=== PATIENT | male | born 1940 | race Caucasian/White ===

== ENCOUNTER → 2024-12-15 10:16 | Outpatient (REF) | payer MEDICARE, OTHER, SELFPAY | LOC: HWRCS 10:16 | PROVIDERS: ATTENDING PHYSICIAN Internal Medicine Cardiovascular Disease; FAMILY PHYSICIAN Internal Medicine Geriatric Medicine | DX: I95.1 Orthostatic hypotension (principal); R42 Dizziness and giddiness; R01.1 Cardiac murmur, unspecified | CPT/HCPCS: 93306 ==

== ENCOUNTER 2025-07-09 11:53 | Day surgery (SDC) | payer MEDICARE, OTHER, SELFPAY ==
--- NOTE | 2025-07-09 13:05 | ITS.CL.IMPLP ---
[employer] Consultant - Implant Loop
Implant Loop
Procedure Report:
Primary Physician: Dr Miguel Edwards
Procedure Date: 07/09/2025
Procedure: Placement of a loop recorder.
History/Indication:
1. See office H&P for complete history.
2. Patient is a pleasant 85-year-old male with a past medical history significant for mild aortic stenosis, orthostatic hypotension, hypertension, mixed hyperlipidemia, history of CVA, sleep apnea, diabetes mellitus type 2, and atrial fibrillation
status post ablation 2005. Patient presenting for elective ILR implant for longitudinal surveillance of atrial arrhythmias.
Method:
After informed consent was obtained, the patient was brought to the EP laboratory holding area in a fasting, non-sedated state. Peripheral access was established. The left chest was prepared and draped in a sterile fashion. A 'time out' was
called. Local anesthesia was injected in the subcutaneous tissue. The ILR was injected under the skin. Topical skin adhesive was applied. Following the procedure, the patient was taken to the recovery area in stable condition. No complications
were noted.
Device Data:
[employer]onic; Model# [id number]; Serial# [id number]
Conclusion:
Successful placement of a loop recorder.
Recommendations:
1. Follow-up will be arranged in the [facility] in 7-10 days for wound check.
2. Routine ILR care.
Demetrio Parra DO, [facility], [facility]
Clinical Cardiac Metal Flooring Installer
cc: Dr Miguel Edwards
== END 2025-07-09 13:55 | disposition home or self-care (01) ==
LOC: CATH 11:53
PROVIDERS: ATTENDING PHYSICIAN Internal Medicine Cardiovascular Disease; FAMILY PHYSICIAN Student in an Organized Health Care Education/Training Program
DX: Z09 Encounter for follow-up examination after completed treatment for conditions other than malignant neoplasm (principal); Z86.73 Personal history of transient ischemic attack (TIA), and cerebral infarction without residual deficits; E11.9 Type 2 diabetes mellitus without complications; E78.2 Mixed hyperlipidemia; I10 Essential (primary) hypertension; I35.0 Nonrheumatic aortic (valve) stenosis; I48.91 Unspecified atrial fibrillation; G47.30 Sleep apnea, unspecified; Z98.890 Other specified postprocedural states
CPT/HCPCS: 33285; C1764

== ENCOUNTER 2025-07-12 03:44 | Inpatient (IN) | payer MEDICARE, OTHER, SELFPAY ==
[2025-07-12] VITALS (35 sets, daily range): BP systolic 80–169; BP diastolic 53–99; PULSE 72–114; O2SAT 96; BMI 26.4; BMI 27.0
[2025-07-12 01:15] LABS: Glucose - Point of Care 129 mg/dl (70-99)
[2025-07-12 01:26] LABS: Hematocrit 41.3 % (39.0-52.0); Hemoglobin 14.0 g/dL (13.0-18.0); Mean Corp Hgb Conc. 33.9 g/dL (33.0-37.0); Mean Corpuscular Volume 90.6 fL (80.0-94.0); Nucleated Red Blood Cells % 0 % (-); Platelet Count 215 10^3/uL (130-400); Red Cell Dist. Width 13.0 % (11.5-14.5)
[2025-07-12 01:45] LABS: INR 0.96; PT 13.0 Sec (11.4-14.6)
[2025-07-12 01:46] LABS: APTT 30.6 Sec (23.4-35.0)
[2025-07-12 01:51] LABS: Troponin I < 0.012 ng/ml
[2025-07-12 01:58] LABS: ALT (SGPT) 37 U/L (0-50); AST (SGOT) 36 U/L (17-59); Albumin 4.6 g/dl (3.5-5.0); Alkaline Phosphatase 80 U/L (38-126); Blood Urea Nitrogen 28 mg/dl (9-20); Calcium 9.4 mg/dl (8.4-10.2); Carbon Dioxide 22 mmol/L (22-30); Chloride 106 mmol/L (98-107); Estimated Creatinine Clearance 50 ml/min; Glucose 143 mg/dl (70-99); Potassium 4.5 mmol/L (3.5-5.1); Sodium 140 mmol/L (135-145); Total Protein 7.9 g/dl (6.3-8.2); eGFR > 60.00
[2025-07-12 02:05] LABS: Urine Character Clear (Clear)
--- NOTE | 2025-07-12 02:18 | ED.CVA ---
History of Present Illness
General
Chief Complaint: CVA/TIA Symptoms
Source: patient, family and ambulance crew
Exam Limitations: altered mental status
Time Seen by Provider: 07/12/25 01:17
Nursing documentation reviewed up to this point in time: agreed with
Onset of Stroke Symptoms
Onset of symptoms known: No
Date of onset of symptoms: 07/11/25
Time of onset of symptoms: 17:00
Time pt last seen normal is known: No
History of Present Illness
History of Present Illness:
Note:
CHIEF COMPLAINT(S)
Chills and confusion.
HISTORY OF PRESENT ILLNESS
The patient is an 85-year-old male who reported experiencing chills on Saturday morning and spent the entire day in bed. The patient described feeling 'low the whole time.' Around midnight, the patient communicated that he was shaking in bed and felt
very unwell, saying, 'I feel real bad right now.' Upon arrival, it was observed that the patient appeared pale and confused, repeating questions and exhibiting visible shivering. The patients blood pressure was recorded at fluctuating high values,
reportedly anywhere from 160/85 to roughly 100/like pounds (clarification needed). The patient acknowledged being on blood pressure medication, specifically metoprolol.
PHYSICAL EXAM
General: Alert, no acute distress.
Skin: Warm, dry.
Head: Normocephalic, atraumatic.
Neck: Supple, trachea midline.
Eye, Ears, Nose, Mouth and Throat: Oral mucosa moist.
Cardiovascular: Normal peripheral perfusion, No edema.
Respiratory: Respirations are non-labored.
Gastrointestinal: Abdomen nondistended.
Back: Normal range of motion, Normal alignment.
Musculoskeletal: Normal ROM, normal strength.
Neurological: Alert and oriented to person, place, time, and situation, No focal neurological deficit observed.
Psychiatric: Cooperative, appropriate mood & affect.
PROBLEM LIST
Acute Problems:
- Chills
- Confusion
- Shivering
Chronic Problems:
- Hypertension
PLAN
1. Monitor vital signs closely with particular attention to blood pressure fluctuations.
2. Evaluate the need for modification or continuation of metoprolol therapy based on current blood pressure readings and overall condition.
3. Further diagnostic workup to assess the cause of chills and confusion.
DIFFERENTIAL DIAGNOSIS
The Differential Diagnosis includes, in no particular order and is not limited to:
- Urinary Tract Infection
- Pneumonia
- Sepsis
- Medication side effects
- Electrolyte imbalance
- Stroke
- Hypothyroidism
- Heart failure
- Dehydration
- Hyperthermia
CARE-UPDATE
07/12/25 - 02:32
The patient, an 85-year-old male, was previously noted to have confusion and expressive aphasia. His last confirmed normal cognitive state was around 5 PM on Saturday. He became notably confused around 1 AM when he could not provide basic information
regarding his identity or current events. Upon reassessment now, he demonstrates some improvement yet still presents with expressive aphasia, unable to accurately describe certain objects like a ladder, referring to it as a 'slope.' While he can
repeat specific phrases when asked, he also perseverates and repeats previously given answers inaccurately. Sensation is generally okay but has a noted discrepancy when tapped on the legs, as he only indicates feeling one leg at a time. His blood
pressure, initially elevated, now reads at 153/69. Recent imaging, including a CT and CTA of the head with perfusion, showed severe artery narrowing, though it appears to be chronic. An implanted AFib-loop recorder was noted. Neurology consultation
confirmed current management and will not require immediate alteration.
CARE-UPDATE
07/12/25 - 02:[address] Mayberry from [facility]; patient likely experiencing transient global amnesia. Initiate aspirin 325 mg. Maintain permissive hypertension. Plan to admit for observation and obtain a brain MRI in the morning.
NIHSS:
Result Summary
2 points undefined
Inputs:
1A: Level of consciousness -> 0 = Alert; keenly responsive
1B: Ask month and age -> 1 = 1 question right
'Blink eyes' & 'squeeze hands' -> 0 = Performs both tasks
2: Horizontal extraocular movements -> 0 = Normal
3: Visual carrasquillo -> 0 = No visual loss
4: Facial palsy -> 0 = Normal symmetry
5A: Left arm motor drift -> 0 = No drift for 10 seconds
5B: Right arm motor drift -> 0 = No drift for 10 seconds
6A: Left leg motor drift -> 0 = No drift for 5 seconds
6B: Right leg motor drift -> 0 = No drift for 5 seconds
7: Limb ataxia -> 0 = No ataxia
8: Sensation -> 0 = Normal; no sensory loss
9: Language/aphasia -> 1 = Mild-moderate aphasia
10: Dysarthria -> 0 = Normal
11: Extinction/inattention -> 0 = Normal
Disposition:
SUMMARY OF ENCOUNTER
The patient, an 85-year-old male, presented with chills and confusion as primary complaints. Upon examination, he was observed to be pale, shivering, and exhibiting expressive aphasia. With fluctuating high blood pressure, he was at risk of
hypertension complications but was being managed on metoprolol. Following consultation with neurology specialists, a presumptive diagnosis of transient global amnesia was made. Given his condition, he was recommended for admission to hospital
service for further observation and assessment.
DISPOSITION
Admit
ASSESSMENT
The patient is likely experiencing transient global amnesia, as per the neurology consultation.
MANAGEMENT OF THE PATIENTS CARE WAS DISCUSSED WITH
Discussion with Dr. Mayberry from [facility] confirmed the management plan of permissive hypertension and initiation of aspirin therapy, along with admission for further observation and a scheduled brain MRI.
PLAN
The immediate plan includes admission for observation, initiation of aspirin 325 mg, maintenance of permissive hypertension, and scheduling a brain MRI for further evaluation of his neurological status.
MEDICATION RECONCILIATION
- Initiated aspirin 325 mg.
MEDICAL DECISION MAKING
- Chronic conditions affecting care include hypertension.
-Data:
Category 1: Consultation with Dr. Mayberry from [facility] resulting in altered management plan and confirmation of transient global amnesia diagnosis.
-Risk: Admission for observation and evaluation with brain MRI underscores increased risk due to potential complications from hypertension and altered mental status.
DIAGNOSIS
- Transient Global Amnesia (ICD-10 G45.4)
- Hypertension (ICD-10 I10)
Phy Exam
Physical Exam
Physical Exam:
.
Scores
Thrombolytic Contraindication
Reasons for NON-Tx with Thrombolytics ABSOLUTE Exclusions: Greater than 4.5 hrs from onset of sxs
Course
Orders/Labs/Results
Orders:
Orders
07/12/25 01:13
Electrocardiogram (*1) Urgent
Reason for Study: Other
Other Reason for Exam: Possible Stroke
Bedside Glucose- Treatment ONCE
Cardiac Monitoring- Treatment ONCE
EKG- Treatment ONCE
IV Insert/Care/Rem.- Treatment PRN
Vital Signs As Directed
Frequency: Other
Weight As Directed
Frequency: Once
Comment: ZERO STRETCHER SCALE FOR ACCURATE WEIGHT
O2 Therapy [RESP] Urgent
Titrate/Wean O2 to maintain O2 sat greater than (%): 93
Special Instructions: MAINTAIN CONTINUOUS O2 SATS > OR = 93%
07/12/25 01:16
Complete Blood Count/With Diff Urgent
Comprehensive Metabolic Panel Urgent
PTT Urgent
Prothrombin Time Urgent
Troponin I Urgent
Urinalysis Reflex To Culture Urgent
Date Specimen was Collected: 07/12/25
Time Specimen was Collected: 01:13
07/12/25 01:[address] BRAIN PERF STROKE ALERT Urgent
Comment:
Reason For Exam: confusion, aphasia
CT HEAD STROKE ALERT W/o Cont Urgent
Comment:
Reason For Exam: confusion, aphasia
CT HEAD/NECK ANG STROKE ALERT Urgent
Comment:
Reason For Exam: confusion, aphasia
07/12/25 02:48
Aspirin 325 mg PO NOW STA
07/12/25 02:55
Aspirin 325 mg PO NOW STA
07/12/25 03:24
Admit/Transfer Patient As Directed
Co-Sign Provider:
Level of Care: Inpatient admission
Assign to:: Telemetry
Physician / Group: Garrick
Diagnosis: TGA / CVA
Reason for Telemetry: CVA/TIA
Date to Stop Telemetry: 07/15/25
Time to Stop Telemetry: 11:00
Reason for Hospitalization: TGA / CVA
Expected length of stay greater than two midnights?: Yes
ELOS- Estimated Length of Stay in days: 2
I certify the patient meets the requirements for IP care: Yes
PRN Pain Medication Management As Directed
May give lesser potent ordered pain med per pt: Yes
preference::
Protocol:: Medication orders for pain may be administered in a
manner that supports deferring to patient preference
when the pt is:
- Requesting an ordered lesser potent pain medication.
Least to most potent pain medications are defined
as: acetaminophen < NSAID < tramadol < opioids
(morphine, oxycodone, hydromorphone).
- Requesting a lesser dose of the same medication IF
ORDERED.
- Requesting a less intrusive route of administration
if both routes are prescribed by the provider (PO <
IV).
07/12/25 03:25
Code Status As Directed
Resuscitation Status: Full Code
07/12/25 05:34
Acetaminophen [Tylenol] 650 mg PO Q4HPRN PRN
07/12/25 05:34
Consult Notification Routine
Specialty to Notify: Neurology
Date consulting provider notified: 07/12/25
Time consulting provider notified: 07:15
Notified:: Provider
Comment: Dr. Torres notified via tiger text
NEUROLOGY CONSULT Routine
Consulting Provider: Alan Kern
Was physician already notified: No
Reason for consult: TGA / CVA
Activity As Directed
Activity Level: Ambulate
With Assistance
EKG with chest pain [ECG as needed] As Directed
ECG as needed for:: Chest Pain
I/O [Intake/ Output] As Directed
Frequency: Per unit guidelines
Neurological Checks As Directed
Frequency: q4h
Orthostatic Vital Signs As Directed
Orthostatic VS Frequency: BID
Pneumatic Compression Sleeves As Directed
Type: Knee high
Vital Signs As Directed
Frequency: Per unit guidelines
Weight As Directed
Frequency: Daily
Oxygen Therapy [O2 Therapy] [RESP] Routine
Titrate/Wean O2 to maintain O2 sat greater than (%): 94
Ot Eval And Treat Routine
PT Consult [Pt Eval And Treat] Routine
Activity Level: Ambulate
With Assistance
Speech Therapy Eval & Treat Routine
DX Deep Vein Thrombosis Video Routine
07/12/25 05:49
Basic Metabolic Panel IN AM
Cardiovascular Evaluation IN AM
Complete Blood Count/No Diff IN AM
Glycohemoglobin (HgbA1c) Routine
TSH Reflex To Free T4 Routine
07/12/25 06:00
EKG [Electrocardiogram (*1)] IN AM
Reason for Study: Chest Pain
Regular
At Your Request: Non-Participating
MR Brain Without Contrast IN AM
Comment:
Reason For Exam: CVA / TIA
Recent pill cam endoscopy?: No
07/12/25 08:00
Aspirin Low Dose EC [Aspir Low (Enteric Coated)] 81 mg PO DAILY
Midodrine [ProAmatine] 2.5 mg PO TID
07/15/25 11:00
DC Protocol for Telemetry ONCE
Abnormal Lab Results
07/12/25 07/12/25
01:14 01:16
RBC 4.56 L 10^6/uL
(4.70-6.10)
Absolute Monos (auto) 0.7 H 10^3/uL
(0.1-0.6)
BUN 28 H mg/dl
(9-20)
Glucose 143 H mg/dl
(70-99)
POC Glucose 129 H mg/dl
(70-99)
07/12/25 01:16
07/12/25 01:16
Vital Signs
Initial and Last Documented VS:
Initial Vital Signs
Temp Pulse Resp BP Pulse Ox
98.3 F 88 24 151/87 99
07/12/25 01:13 07/12/25 01:13 07/12/25 01:13 07/12/25 01:13 07/12/25 01:13
Last Documented Vital Signs
Temp Pulse Resp BP Pulse Ox
97.7 F 83 18 154/83 97
07/13/25 11:00 07/13/25 11:00 07/13/25 11:00 07/13/25 11:00 07/13/25 11:00
*Radiology
Radiology exam reviewed: radiology read reviewed
*Pulse Oximetry
SaO2: 100
Oxygen Mode of Delivery: Room air
Patient hypoxic: no
*Critical Care Note
Total Time (30-74mins, 75-104mins- exclusive of procedures): 50. (Critical care statement: A total of 50 minutes of critical care time was provided for this patient. This time is separate from time utilized to perform the aforementioned documented
procedures. Aggregate critical care time includes only time during which I was engaged in work directl)
ED Attending Note
-
Portions of this chart may have been created with voice recognition software.� Occasional wrong word or��sound alike� substitutions may have occurred due to the inherent limitations of voice recognition software.
Discharge Plan
Departure
Patient Disposition: Admit
Date of Disposition: 07/12/25
Time of Disposition: 02:51
Presentation/result/management discussed w/ accepting MD/DO: Hospitalist
Condition: Serious
Discharge Problem:
TGA (transient global amnesia), Expressive aphasia
Interventions
Interventions:
*Risk Screen - Suicide Last Done: 07/12/25 02:10
*General Assessment Last Done: 07/12/25 02:10
*Neglect/Abuse Screening Last Done: 07/12/25 02:10
*ED- Fall Risk Assessment Last Done: 07/12/25 02:10
*ED COVID-19 Vaccine History Last Done: 07/12/25 02:10
*ED Influenza Vaccine History Last Done: 07/12/25 02:10
*Nursing Disposition Last Done: 07/12/25 16:30
ED- Pulmonary Assessment Last Done: 07/12/25 02:14
ED- Neurological Assessment Last Done: 07/12/25 01:51
ED- Cardiac Assessment Last Done: 07/12/25 02:14
ED Swallowing Screen Last Done: 07/12/25 03:04
--- NOTE | 2025-07-12 02:20 | EDRN ---
Pt arrived to ED with stroke symptoms, Dr. Koo at bedside upon arrival to assess pt. Stroke alert called at 0120, pt brought CT scan immediately. Upon pt returning to room, Dr. Koo at bedside to complete NIH stroke scale, agreed at a 2
as pt could not state correct age or month. No unilateral weakness noted. Labs and urine sent, at bedside to further explain symptoms and new mentation.
[2025-07-12] MEDS: ASPIRIN 325 MG PO (02:54)
--- NOTE | 2025-07-12 03:27 | HPS.HSE ---
Family Physician
-
Family Physician: Miguel Edwards, DO
Chief Complaint
-
Confusion
History of Present Illness
Patient is an 85y M with PMH significant for orthostatic hypotension / PPPD, paroxysmal A-Fib and DM-II who presents to ED for evaluation of altered mental status / confusion. History obtained from patient - but to greater extent from at
the bedside. Patient has h/o paroxysmal A-Fib and was recently evaluated by Cardiology here at (Dr. Parra). He was reluctant to agree to OAC and so a LINQ was placed on 07/09 to evaluate for A-Fib burden. Patient tolerated that procedure
well. states that he woke Saturday AM and felt more lightheaded / dizzy than usual. His symptoms passed however and he was able to attend a family function / lunch without issues.
They returned home and patient spent the afternoon / evening watching football. They took a break from football to watch 60 Minutes together - during which patient was reportedly fairly aggravated / upset with the program.
Patient went to bed around 9:30 - 10PM. He then woke his around midnight and asked her to call for help. He was confused and disoriented at that time according to his .
Patient states that he was 'worried I would go into A-Fib' - but otherwise he cannot describe why he felt he needed assistance.
There was reportedly not noted focal weakness, numbness, fall, syncope, etc,. No chest pain or dyspnea.
In the ED, patient is emotionally labile / tearful at times. He is disoriented and is perseverating the same phrases / statements.
Patient was evaluated by [facility] Telestroke and recommendation is for daily ASA and MRI in AM.
Medical History
Past Medical History
Past Medical History: Reports Other
Additional Past Medical History:
Paroxysmal Atrial Fibrillation / Flutter
Aortic Stenosis
Hypertension
DM-II
PPPD / Orthostatic Hypotension
EMILY
Past Surgical History: Reports Other
Additional Past Surgical History:
PVI Ablation
Bilateral TKA
LINQ Placement
Social History
Tobacco: Non-smoker
Alcohol: Occasional
Drug: None
Personal:
Living: With Family
Family History
Family History: Not pertinent
Allergies / Home Medications
Allergies reflects when Allergies were last updated in [facility].
Home Medications with original date entered in [facility]
Allergy/Medication List:
Allergies
Allergy/AdvReac Type Severity Reaction Status Date / Time
[id number] Reductase Allergy Unknown Unknown Verified 07/12/25 02:28
Inhibitor
Home Medications
B-complex with vitamin C 1 cap PO DAILY 07/09/25
aspirin 81 mg tablet 81 mg PO DAILY 07/09/25
cholecalciferol (vitamin D3) 25 mcg (1,000 unit) capsule (Vitamin D3) 25 mcg PO DAILY 07/09/25
cyanocobalamin (vitamin B-12) 1,000 mcg tablet (Vitamin B-12) 1,000 mcg PO DAILY 07/09/25
metformin 500 mg tablet,extended release 24 hr 500 mg PO QPM 07/09/25
midodrine 2.5 mg tablet 2.5 mg PO TID 07/09/25
multivitamin 1 tab PO DAILY 07/09/25
docusate sodium 100 mg capsule (Colace) 100 mg PO DAILY 07/12/25
ezetimibe 10 mg tablet 10 mg PO DAILY 07/12/25
omeprazole 10 mg capsule,delayed release 10 mg PO DAILY 07/12/25
Review of Systems
-
History Source: Patient and Family
A 12 point ROS was completed and negative except as noted: Yes
Constitutional: Denies Fever or Chills
Respiratory: Denies Cough or Trouble Breathing
Cardiac: Denies Chest Pain
Abdomen/GI: Denies Abdominal Pain, Nausea or Vomiting
: Denies Incontinence
Musculoskeletal: Denies Edema
Neurological: Denies Dizzy or Headache
Physical Exam
Vital Signs
Vital Signs
Temp Pulse Resp BP Pulse Ox
98.3 F 79 16 118/96 100
07/12/25 01:13 07/12/25 03:00 07/12/25 03:00 07/12/25 03:00 07/12/25 03:00
Physical Exam
General: Other (85y M is tearful / emotionally labile in the ED.)
HEENT: Moist mucous membranes and PERRLA
Respiratory: Clear; No Wheezes, Rales or Rhonchi
Cardiac: S1/S2, Regular Rhythm and Murmur (II/ BECKY)
GI: Soft, Non Tender, Non Distended and Normal Bowel Sounds
Musculoskeletal: No Clubbing, No Cyanosis, No Edema and Other (Mild - moderate varicose veins.)
Neuro: Awake, Alert and Other (No focal weakness, sensory deficits or ataxia. Oriented only to person (self / ). Place [facility]. Year .); No Oriented
Laboratory Results
-
07/12/25 01:16
07/12/25 01:16
Laboratory Results
PT 13.0 Sec (11.4-14.6) 07/12/25 01:16
INR 0.96 07/12/25 01:16
APTT 30.6 Sec (23.4-35.0) 07/12/25 01:16
Total Bilirubin 0.8 mg/dl (0.2-1.3) 07/12/25 01:16
AST 36 U/L (17-59) 07/12/25 01:16
ALT 37 U/L (0-50) 07/12/25 01:16
Alkaline Phosphatase 80 U/L (38-126) 07/12/25 01:16
Troponin I < 0.012 ng/ml 07/12/25 01:16
Impression/Plan
-
A/P: Patient is an 85y M with PMH significant for atrial fibrillation, hypertension and orthostatic hypotension who presents to ED for evaluation of altered mental status.
Altered Mental Status
TGA v CVA
- Admit for further evaluation and treatment.
- Monitor on telemetry overnight. Nursing to interrogate LINQ device in the ED.
- No focal weakness / sensory deficits / etc. CT, CT perfusion unremarkable.
- Area of vertebral stenosis noted on CTA.
- No recent med changes. No systemic anesthesia for LINQ (only local per ).
- Follow serial neurologic exams.
- PT / OT / Speech evals.
- Check lipid panel, A1C, etc.
- ASA daily. MRI in AM. Neurology evaluation for additional recommendations.
- Follow for improvement in mental state / return to baseline which would be typical of TGA event.
Paroxysmal Atrial Fibrillation / Flutter
- Stable. Not in A-Fib at present. Interrogate LINQ as noted above.
- Monitor on telemetry.
- Would consider OAC for stroke risk reduction - though patient was reluctant to consider this in the past.
Orthostatic Hypotension / PPPD
- Stable. Continue midodrine with holding parameters.
- PT / OT evaluations.
DM-II
- Stable. Hold metformin acutely.
- Follow glucose and cover with SSI as needed.
- Update A1C.
DVT Prophylaxis: SCDs
Code Status: Full
[2025-07-12 06:04] LABS: Hematocrit 37.9 % (39.0-52.0); Hemoglobin 13.2 g/dL (13.0-18.0); Mean Corp Hgb Conc. 34.8 g/dL (33.0-37.0); Mean Corpuscular Volume 90.7 fL (80.0-94.0); Platelet Count 214 10^3/uL (130-400); Red Cell Dist. Width 12.8 % (11.5-14.5)
[2025-07-12 06:29] LABS: Blood Urea Nitrogen 26 mg/dl (9-20); Calcium 8.8 mg/dl (8.4-10.2); Carbon Dioxide 25 mmol/L (22-30); Chloride 107 mmol/L (98-107); Estimated Creatinine Clearance 54 ml/min; Glucose 137 mg/dl (70-99); HDL Cholesterol 38 mg/dl; LDL Cholesterol, Calculated 92 mg/dl; Potassium 4.0 mmol/L (3.5-5.1); Sodium 137 mmol/L (135-145); Very Low Density Lipoprotein 22 mg/dl (0-30); eGFR > 60.00
--- NOTE | 2025-07-12 07:28 | PTCARENOTE ---
Attempted to obtain orthostatic BPs. Patient unable to tolerate standing d/t dizziness. Only supine and sitting BPs recorded, see flowsheet.
[2025-07-12 08:40] LABS: Glycohemoglobin (HgbA1c) 6.1 % (4.0-5.9)
[2025-07-12] MEDS: ASPIR LOW (ENTERIC COATED) 81 MG PO (08:53)
--- NOTE | 2025-07-12 09:10 | CON.NEURO4 ---
Addendum entered and electronically signed by Nikolai Torres MD 07/12/25 13:41:
Studies reviewed.
I have personally examined the patient. I reviewed and agree with the HEATER PLANER OPERATOR's Note.
My addenda:
Awake, alert, interactive. No acute distress.
Speech intact.
Follows 2-step requests w/o difficulty. No tremor.
Extra-ocular movements grossly intact.
Facial movements full and symmetric. Hearing intact to normal conversational volume.
Normal UE movements bilaterally.
Neck: full ROM.
Chest: no dyspnea
Heart: no JVD
Ext: (-) Clubbing, (-) Cyanosis, (-) Edema
IMPRESSIONS/RECOMMENDATIONS:
Abrupt onset of change in mental status in a patient with what is described as mildly progressive cognitive dysfunction over time
Differential diagnosis remains broad as this may be the result of relative hypotension, transient global amnesia, acute ischemic stroke, or significant worsening of underlying cognitive dysfunction
Check MRI brain without contrast, if abnormal, would replace aspirin with anticoagulation as the patient has a prior history of atrial fibrillation
Check blood her for potential metabolic causes
Continue to follow orthostatic blood pressures
Continue thiamine which is newly initiated
Continue Ezetimibe, newly initiated a few weeks ago. The patient's LDL is greater than 70, however the medication might not have had adequate time for remediation of this problem. This patient is statin intolerant
Rehabilitation evaluations and treatment
D/W patient / family
All questions answered.
Will continue to follow pending results.
Original Note:
Documented by User: Мария Boyle NP 07/12/25 12:16
Consultation - Neurology 4
-
CONSULTING PHYSICIAN: Nikolai Torres MD
REFERRING PHYSICIAN: Hospitalists/Dr. Mccauley
DICTATED BY: GORAN Dhaliwal
DATE/TIME OF REQUEST: 07/11/25
DATE/TIME OF CONSULTATION: 07/12/25
Reason for Consultation: Confusion
History of Present Illness:
This is an 85-year-old right-handed male who has presented to the hospital with report of confusion. Patient's at bedside reports that yesterday morning (06/10/25) he reported he didn't feel well. He did okay throughout the day and ate meals as
usual and watched football as he typically does. He went to bed around 2100. Just before midnight, his reports that he woke up suddenly and told her that he felt sick and to 'pull the cord' for help. On EMS arrival they noted that he was
significantly confused. CT head, CTA head/neck, and CT brain perfusion were obtained on arrival and are negative for any acute abnormalities. NIHSS was 2 for incorrect orientation question and mild aphasia. He was not a candidate for TNK/IAT due to
low NIHSS, no LVO. He was loaded with aspirin in the ER. Patient's reports that he remains mildly confused compared to his baseline. The patient denies any headache, dizziness, vision changes, speech/swallow difficulty, numbness, and weakness.
He previously followed with [facility] Dr. Vicente for neuropathy and dizziness but hasn't seen him since 2022. His reports that at some point he was diagnosed with persistent postural-perceptual dizziness (PPPD) and orthostasis but
she cannot recall who made this diagnosis. He has been taking midodrine which she notes doesn't make a significant difference. He reports previous sleep apnea but upon doing a sleep study he was unable to sleep, he doesn't use a cpap. He notes
chronic bilateral hearing loss. He also has a history of paroxysmal Afib but refuses anticoagulation, he had an ILR placed on 07/09/25 to determine his Afib burden. He also notes difficulty word finding at baseline and he stopped driving over a year
ago, mostly due to neuropathy. He used to be active and play tennis but his orthostasis has reduced his activity level.
Past Medical History: Afib (not on OAC), PPPD, orthostatic hypotension, neuropathy, EMILY (untreated), NIDDM, aortic stenosis
Surgical History: ILR 07/09/25, PVI ablation, B/L TKR
Family History: Mother- Alzheimer's disease.
Social History: Occasional alcohol. Denies tobacco and illicit drug use.
Allergies: Statins.
Home Medications: See below.
Review of Symptoms:
Patient denies any fever, headache, chest pain, shortness of breath, GI or symptoms.
�Per the HPI.�All systems are reviewed negative except above.
Physical Exam:
The patient is afebrile, abdomen is nondistended, breathing is unlabored, skin is warm and dry, no edema.
NIH Stroke Scale:
I performed the NIH stroke scale on the patient on 07/12/25 at 0915. The patient scored 0 points on the NIH stroke scale assessment, which were assigned as follows: See below.
Neurologic Examination:
The patient is awake, alert and oriented x 3, most recent holiday- Halloween. Word recall 2/3. He is able to follow commands and answer questions appropriately. There is no aphasia or dysarthria. On cranial nerve assessment, pupils are 3 mm
bilateral, round and reactive to light and accommodation. Visual velez are full. Extraocular movements are intact. +Micronystagmus to the left. Facial sensations are intact and bilaterally symmetrical, there is no facial asymmetry. Hearing is
intact bilaterally to normal conversation volume. Tongue palate and uvula are midline. Sternocleidomastoid strengths are full bilaterally. Motor strengths are 5/5 bilateral upper and lower extremities on medical research [place] scale. There is no
drift or involuntary movement noted. Deep tendon reflexes are 2+ bilateral upper and lower extremities and Babinski is absent bilaterally. There was no extinction noted on double simultaneous stimulation. Coordination is intact by finger to nose
bilaterally.
Lab Results: See below.
Neuro Imaging:
1. CT Head 06/11/25: No acute intracranial abnormality. ASPECT score: 10.
2. CTA head/neck 06/11/25: There is moderate stenosis within the M1 segment of the left MCA as well as likely high-grade stenosis within the proximal M2 division of the left MCA. 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
reconstitution in the mid V2 segment and reconstitution of the V3 segment. There is likely high-grade stenosis at the V3-V4 junction. Right dominant vertebral artery. Mild atherosclerotic calcifications of the carotid bifurcation/proximal ICA
without significant stenosis.
3. CT Brain Perfusion 06/11/25: CBF 0ml, Tmax 0ml.
Differentials for the patient's presentation include:
1. Acute onset confusion; etiology is concerning for a small ischemic stroke given symptoms has not entirely resolved. Symptoms are not very supportive of transient global amnesia.
2. Reports underlying slight memory impairment.
3. Intracranial stenosis.
Patient has the following risk factors for their symptoms: age, memory impairment, orthostasis, NIDDM
IV Tenecteplase/IAT candidacy: He was not a candidate for TNK/IAT due to low NIHSS, no LVO.
Recommendations:
-Continue aspirin 81mg daily. Hold off on adding clopidogrel until MRI brain result is obtained.
-Goal normotension. Check orthostatic vital signs BID.
-MRI brain noncontrast pending.
-Thiamine 100mg daily initiated.
-LDL goal <70. LDL is 92.
-Goal normoglycemia, hbA1c is 6.1.
-PT/OT/ST evaluations.
-NIHSS and neurological checks per unit guidelines.
-Provide patient/family with a stroke education packet.
-DVT prophylaxis.
-Outpatient neuropsychological testing.
-Follow-up with Dr. Vicente again as an outpatient.
Discussed patient care with: Dr. Torres, the patient, patient's
Vital Signs and Labs
-
Vital Signs and Labs:
Vital Signs
Temp Pulse Resp BP Pulse Ox
98.8 F 79 24 126/70 99
07/12/25 11:19 07/12/25 11:19 07/12/25 11:19 07/12/25 11:19 07/12/25 11:19
Lab Results
07/12/25 05:49
07/12/25 05:49
PT 13.0 Sec (11.4-14.6) 07/12/25 01:16
INR 0.96 07/12/25 01:16
APTT 30.6 Sec (23.4-35.0) 07/12/25 01:16
Sodium 137 mmol/L (135-145) 07/12/25 05:49
Potassium 4.0 mmol/L (3.5-5.1) 07/12/25 05:49
BUN 26 mg/dl (9-20) H 07/12/25 05:49
Glucose 137 mg/dl (70-99) H 07/12/25 05:49
Calcium 8.8 mg/dl (8.4-10.2) 07/12/25 05:49
LDL Cholesterol, Calc 92 mg/dl 07/12/25 05:49
Medications
-
Active Medications
Generic Name Dose Route Start Last Admin
Trade Name Freq PRN Reason Stop Dose Admin
Acetaminophen 650 mg 07/12/25 05:34
Acetaminophen 325 Mg Tablet PO 08/09/25 05:33
Q4HPRN PRN
Mild Pain / Temp > 101
Aspirin 81 mg 07/12/25 08:00 07/12/25 08:53
Aspirin 81 Mg (Enteric Coated) Tablet PO 08/09/25 07:59 81 mg
DAILY VALERIE Administration
Midodrine 2.5 mg 07/12/25 08:00 07/12/25 09:02
Midodrine 2.5 Mg Tablet PO Not Given
TID VALERIE
Sodium Chloride 0 flush 07/12/25 06:00
Sodium Chloride 0.9% (Flush) Syringe IV 08/09/25 05:59
PER PROTOCOL VALERIE
Thiamine HCl 100 mg 07/12/25 11:00 07/12/25 11:31
Thiamine 100 Mg Tablet PO 07/14/25 08:01 100 mg
DAILY VALERIE Administration
Home Medications
�Medication �Instructions �Recorded
B-complex with vitamin C 1 cap PO DAILY 07/09/25
aspirin 81 mg tablet 81 mg PO DAILY 07/09/25
cholecalciferol (vitamin D3) 25 25 mcg PO DAILY 07/09/25
mcg (1,000 unit) capsule (Vitamin
D3)
cyanocobalamin (vitamin B-12) 1,000 mcg PO DAILY 07/09/25
1,000 mcg tablet (Vitamin B-12)
metformin 500 mg tablet,extended 500 mg PO QPM 07/09/25
release 24 hr
midodrine 2.5 mg tablet 2.5 mg PO TID 07/09/25
multivitamin 1 tab PO DAILY 07/09/25
docusate sodium 100 mg capsule 100 mg PO DAILY 07/12/25
(Colace)
ezetimibe 10 mg tablet 10 mg PO DAILY 07/12/25
omeprazole 10 mg capsule,delayed 10 mg PO DAILY 07/12/25
release
NIH Stroke Score
Subsequent NIH Scale
Date of Subsequent NIH Scale: 07/12/25
Time of Subsequent NIH Scale: 09:15
NIH Stroke Score
Level of Consciousness: 0 - Alert
LOC Questions: 0-Answers both correctly
LOC Commands: 0-Performs both correctly
Best Horizontal Gaze: 0-Normal
Visual Velez: 0=Normal, no visual loss
Facial Palsy: 0=Normal, symmetrical
Motor - Right Arm: 0=No drift 10 seconds
Motor - Left Arm: 0=No drift 10 seconds
Motor - Right Le-No drift 5 seconds
Motor - Left Le-No drift 5 seconds
Limb Ataxia: 0-Absent
Sensation: 0-Normal
Best Language: 0-No aphasia
Dysarthria: 0-Normal
Extinction and Inattention: 0-No abnormality
NIH Total Score:: 0
Modified [place] (mRS) Score
Modified Jesse Scale (mRS): No symptoms
Score: 0
Alteplase Contraindication
Inclusion and Exclusion criteria reviewed: Yes
IAT Contraindications: NIHSS < 6 and Imaging doesn't show large vessel occlusion as cause of stroke

Documented by User: Nikolai Torres MD 07/12/25 13:30
NIH Stroke Score
NIH Stroke Score
NIH Total Score:: 0
Modified [place] (mRS) Score
Score: 0
--- NOTE | 2025-07-12 09:19 | W.PN.HOSP.TC ---
Today's Communication/Plan
-
MRI brain
Assessment / Plan
Assessment / Plan
Physical exam:
General: Well Developed, Well Nourished and No Apparent Distress
HEENT: Normocephalic, Atraumatic and Moist Mucous Membranes
Respiratory: Clear to Auscultation; Negative Wheezes, Rales or Rhonchi
Cardiac: Regular Rhythm and S1/S2
GI: Soft, Nontender and Nondistended
Musculoskeletal: No Clubbing, No Cyanosis and No Edema
Neuro: Awake, Alert and Oriented
Psych: Calm
A/P:
A/P: Patient is an 85y M with PMH significant for atrial fibrillation, hypertension and orthostatic hypotension who presents to ED for evaluation of altered mental status.
Altered Mental Status
TGA v CVA
- Admit for further evaluation and treatment.
- Monitor on telemetry overnight. Nursing to interrogate LINQ device in the ED.
- No focal weakness / sensory deficits / etc. CT, CT perfusion unremarkable.
- Area of vertebral stenosis noted on CTA.
- No recent med changes. No systemic anesthesia for LINQ (only local per ).
- Follow serial neurologic exams.
- PT / OT / Speech evals.
- Check lipid panel, A1C, etc.
- ASA daily. MRI in AM. Neurology evaluation for additional recommendations.
- Follow for improvement in mental state / return to baseline which would be typical of TGA event.
Paroxysmal Atrial Fibrillation / Flutter
- Stable. Not in A-Fib at present. Interrogate LINQ as noted above.
- Monitor on telemetry.
- Would consider OAC for stroke risk reduction - though patient was reluctant to consider this in the past.
Orthostatic Hypotension / PPPD
- Stable. Continue midodrine with holding parameters.
- PT / OT evaluations.
DM-II
- Stable. Hold metformin acutely.
- Follow glucose and cover with SSI as needed.
- Update A1C.
DVT Prophylaxis: SCDs
Code Status: Full
Anticipated Discharge: Within 24 hours
Subjective/Interval History
-
Date of Service: July 12, 2025
Patient feels well today. Does not remember the details of the event.
Objective Data
-
Labs:
Laboratory Results
07/12/25 07/12/25
01:16 05:49
WBC 8.0 9.2
Hgb 14.0 13.2
Hct 41.3 37.9 L
Plt Count 215 214
PT 13.0
INR 0.96
APTT 30.6
Sodium 140 137
Potassium 4.5 4.0
Chloride 106 107
Carbon Dioxide 22 25
BUN 28 H 26 H
Creatinine 1.2 1.1
Glucose 143 H 137 H
Calcium 9.4 8.8
Total Bilirubin 0.8
AST 36
ALT 37
Alkaline Phosphatase 80
Vital Signs:
Vital Signs
Temp Pulse Resp BP Pulse Ox
98.3 F 85 23 155/89 98
07/12/25 01:13 07/12/25 08:52 07/12/25 08:52 07/12/25 08:52 07/12/25 08:30
I&O
07/11/25 07/12/25 07/13/25
05:59 06:59 06:59
Output Total 900 / 900
Balance -900 / -900
--- NOTE | 2025-07-12 10:17 | CM ---
Chart reviewed and CM Ketan spoke with patient and his Tiffanie at ED bedside.
Lives in an Independent section of [facility] with . [address] floor set up
Indep with ADLs ambulating with cane as needed able to drive but does the most of driving
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
Very supportive 2 dtrs ; one in [place] and another one is local with 5 grandsons
DME walker, cane
PCP new at [facility] Dr. Miguel Edwards
RX plan yes
Pharmacy [facility] at [facility]
hx of VN in 2013 after toya surgery but does not remember the name of the agency
no hx of SNF
DCP is to return back home with service if indicated
CM to follow up for any dcp needs
[2025-07-12] MEDS: VITAMIN B1 100 MG PO (11:31)
--- NOTE | 2025-07-12 12:24 | PTOTSP ---
Speech Therapy Evaluation:
Pt with acute risk factor of dysphagia including concern for CVA vs TGA. At bedside, oropharyngeal swallow appeared WFL. No overt s/sx of aspiration, pt passed 3oz swallow screen, WBC WNL, and vitals stable. No chest imaging completed thus far.
Recommend:
1. Regular solids and thin liquids
2. Meds as tolerated
3. General aspiration precautions
4. IMPROVEMENT AUDITOR to follow to monitor tolerance of diet, likely brief
5. IMPROVEMENT AUDITOR to follow to determine if further cognitive testing appropriate, pending MRI
[2025-07-12] MEDS: PROTONIX 40 MG PO (19:42)
[2025-07-12] MEDS: TUMS CHEWABLE TABLET 400 MG PO (19:45)
[2025-07-13 06:00] VITALS: BMI 26.5
[2025-07-13] MEDS: VITAMIN B1 100 MG PO (07:52)
[2025-07-13] MEDS: ASPIR LOW (ENTERIC COATED) 81 MG PO (07:53)
[2025-07-13 08:28] VITALS: BP 137/86; BP 96/54; BP 98/63; PULSE 73; PULSE 91; PULSE 96
[2025-07-13 08:47] VITALS: BP 137/86
--- NOTE | 2025-07-13 08:48 | W.PN.HOSP.TC ---
Today's Communication/Plan
-
Discharge planning today
Assessment / Plan
Assessment / Plan
Physical exam:
General: Well Developed, Well Nourished and No Apparent Distress
HEENT: Normocephalic, Atraumatic and Moist Mucous Membranes
Respiratory: Clear to Auscultation; Negative Wheezes, Rales or Rhonchi
Cardiac: Regular Rhythm and S1/S2
GI: Soft, Nontender and Nondistended
Musculoskeletal: No Clubbing, No Cyanosis and No Edema
Neuro: Awake, Alert and Oriented
Psych: Calm
A/P:
A/P: Patient is an 85y M with PMH significant for atrial fibrillation, hypertension and orthostatic hypotension who presents to ED for evaluation of altered mental status.
Altered Mental Status
TGA v CVA versus cognitive deficit
- Neurology evaluation appreciated
- MRI of the brain unremarkable for acute finding
- Neurology recommends increase midodrine and continue with aspirin and CT
Paroxysmal Atrial Fibrillation / Flutter
- Stable. Not in A-Fib at present. Interrogate LINQ as noted above.
- Monitor on telemetry.
- Would consider OAC for stroke risk reduction but can check as outpatient with cardiology
Orthostatic Hypotension / PPPD
- Stable. Continue midodrine with holding parameters.
- PT / OT evaluations.
DM-II
- Stable. Hold metformin acutely.
- Follow glucose and cover with SSI as needed.
- Update A1C.
DVT Prophylaxis: SCDs
Code Status: Full
Anticipated Discharge: Today
Subjective/Interval History
-
Date of Service: July 13, 2025
No new complaints.
Objective Data
-
Vital Signs:
Vital Signs
Temp Pulse Resp BP Pulse Ox
98.5 F 73 16 137/86 98
07/13/25 08:28 07/13/25 08:47 07/13/25 08:28 07/13/25 08:47 07/13/25 08:28
I&O
07/12/25 07/13/25 07/14/25
06:59 06:59 06:59
Intake Total 480 / 480
Output Total 900 / 900 1450 / 1450
Balance -900 / -900 -970 / -970
--- NOTE | 2025-07-13 09:06 | W.PN.NEURO.1 ---
Today's Communication / Plan
-
advance Midodrine from 2.5 to 5 mg TID
keep HOB elevated at 30 degrees to prevent supine hypertension
abdominal binder to prevent hypotension
encourage fluid
continue aspirin
continue Ezetimibe
outpatient cognitive testing
Neuro Assessment/Plan
Assessment
Abrupt onset of change in mental status in a patient with what is described as mildly progressive cognitive dysfunction over time
Differential diagnosis remains broad as this may be the result of relative hypotension, transient global amnesia, or significant worsening of underlying cognitive dysfunction
MRI brain failed to demonstrate acute changes.
Plan
advance Midodrine from 2.5 to 5 mg TID
keep HOB elevated at 30 degrees to prevent supine hypertension
abdominal binder to prevent hypotension
encourage fluid
Continue thiamine for total of 2 more days before discontinuing
Would replace aspirin with anticoagulation due to the patient's prior history of atrial fibrillation, which they can review with his back shoe cutter as an outpatient
continue Ezetimibe
outpatient cognitive testing
Will follow as outpatient.
Subjective/Objective
Subjective Data
Date of Service: July 13, 2025
Having LH with walking
Objective Data
Vital Signs
Temp Pulse Resp BP Pulse Ox
36.9 C 73 16 137/86 98
07/13/25 08:28 07/13/25 08:47 07/13/25 08:28 07/13/25 08:47 07/13/25 08:28
Lab Results
07/12/25 05:49
07/12/25 05:49
PT 13.0 Sec (11.4-14.6) 07/12/25 01:16
INR 0.96 07/12/25 01:16
APTT 30.6 Sec (23.4-35.0) 07/12/25 01:16
Sodium 137 mmol/L (135-145) 07/12/25 05:49
Potassium 4.0 mmol/L (3.5-5.1) 07/12/25 05:49
BUN 26 mg/dl (9-20) H 07/12/25 05:49
Glucose 137 mg/dl (70-99) H 07/12/25 05:49
Calcium 8.8 mg/dl (8.4-10.2) 07/12/25 05:49
LDL Cholesterol, Calc 92 mg/dl 07/12/25 05:49
Patient Allergies
Fmimhoo-CUC-HwV Reductase Inhibitor Allergy (Unknown, Verified 07/12/25 02:28)
Unknown
Review of Systems
-
History Source: Patient and Family
All other systems: Reviewed and negative
Physical Exam
-
General: No Apparent Distress and Appears Stated Age
Eyes: Round OU, [place] Conjunctivae and No Ptosis
HEENT: Anicteric and Moist Mucous Membranes
Neck: Full Range of Motion
Respiratory: No Dyspnea
Cardiac: No JVD
GI: Non-distended
Skin: Unremarkable
Extremities: No Clubbing, No Cyanosis and No Edema
Psych: Intact Judgement/Insight
Extended Neurological Exam
Mood & Affect: Mood Unremarkable and Affect Unremarkable
Attention Span & Concentration: Awake, Alert, Interactive and No Difficulty with 2 Step Request
Memory: Unremarkable
Tremor: Hand Tremor Absent and Head Tremor Absent
Speech: Quality Unremarkable and Quantity Unremarkable
Cranial Nerve II: Left Eye: Pupillary Size Unremarkable and Visual Velez Grossly Intact
Cranial Nerve II: Right Eye: Pupillary Size Unremarkable and Visual Velez Grossly Intact
Cranial Nerves III, IV, : Extraocular Movement: Extraocular Movement Full in all Directions
Cranial Nerve VII: Facial Symmetry: Normal Facial Symmetry
Cranial Nerve VIII: Hearing: Unremarkable Hearing to Normal Conversational Volume
Cranial Nerve XI: Shoulder Shrug: Unremarkable
Muscle Strength, Overall: Full in Upper Extremities
Muscle Bulk & Tone: Bulk Unremarkable and Tone Unremarkable
Touch Sensation: Unremarkable
Coordination: Reaches for Objects without Difficulty
Data Reviewed
-
MRI Head: Report Reviewed
Labs: Report Reviewed
Reviewed with: Physician, Patient and Family
Old Records: Summarized
Medications
-
Medications:
Generic Name Dose Route Start Last Admin
Trade Name Freq PRN Reason Stop Dose Admin
Acetaminophen 650 mg 07/12/25 05:34
Acetaminophen 325 Mg Tablet PO 08/09/25 05:33
Q4HPRN PRN
Mild Pain / Temp > 101
Aspirin 81 mg 07/12/25 08:00 07/13/25 07:53
Aspirin 81 Mg (Enteric Coated) Tablet PO 08/09/25 07:59 81 mg
DAILY VALERIE Administration
Calcium Carbonate 400 mg 07/12/25 19:32 07/12/25 19:45
Calcium Antacid 200 Mg (Calcium Carbonate 500 Mg) Chew Tablet PO 08/09/25 19:31 400 mg
Q4HPRN PRN Administration
indigestion
Ezetimibe 10 mg 07/13/25 09:00
Ezetimibe (Zetia) 10 Mg Tablet PO 08/10/25 08:59
DAILY VALERIE
Metformin HCl 500 mg 07/13/25 18:00
Metformin 500 Mg Extended Release Tablet PO 08/10/25 17:59
QPM VALERIE
Midodrine 2.5 mg 07/12/25 18:00 07/13/25 07:52
Midodrine 2.5 Mg Tablet PO 2.5 mg
TID@0800,1200,1800 VALERIE Administration
Pantoprazole Sodium 20 mg 07/13/25 09:00
Pantoprazole 20 Mg Delayed Release Tablet PO 08/10/25 08:59
DAILY VALERIE
Sodium Chloride 0 flush 07/12/25 06:00
Sodium Chloride 0.9% (Flush) Syringe IV 08/09/25 05:59
PER PROTOCOL VALERIE
Thiamine HCl 100 mg 07/12/25 11:00 07/13/25 07:52
Thiamine 100 Mg Tablet PO 07/14/25 08:01 100 mg
DAILY VALERIE Administration
--- NOTE | 2025-07-13 10:12 | PTCARENOTE ---
Called [facility] to drop off abdominal binder
[2025-07-13 11:00] VITALS: BP 154/83
[2025-07-13] MEDS: ZETIA 10 MG PO (11:41)
[2025-07-13] MEDS: TUMS CHEWABLE TABLET 400 MG PO (11:42)
[2025-07-13] MEDS: PROTONIX 20 MG PO (11:42)
--- NOTE | 2025-07-13 12:58 | W.DCSUMMARY ---
Discharge Summary
Discharge Data
Date of Admission: 07/12/25
Date of Discharge: 07/13/25
-
Pending Results: No
Hospital Course
Patient 85 years old male with history of A-fib not on anticoagulation, orthostatic hypotension, neuropathy, EMILY, diabetes mellitus, aortic stenosis, came into the hospital with mental status changes. Neurology was consulted. CT head showed no
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
of the left MCA, occlusion of the left vertebral artery with focal reconstitution in the mid V2 segment and reconstitution of the V3 segment and likely high-grade stenosis at the V3 V4 junction among other nonspecific abnormalities. Patient also
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 Neurology felt that he had some progressive cognitive dysfunction compounded with relative
hypotension possible transient global amnesia and or significant worsening of of underlying cognitive dysfunction most likely etiology of this event. Neurology also recommended to increase midodrine from 2.5 to 5 mg 3 times a day and encourage
fluid intake and continue aspirin and ezetimibe and outpatient cognitive testing. PT OT evaluated patient recommended skilled rehab. Patient and family feels that they can have the services that they need back to their facility. I did ask case
clinical account manager to evaluate for home needs and placed an order for home health services/visiting nurses. Neurology has cleared him for discharge. Otherwise, patient hemodynamically stable neurological intact at the moment and he will be discharged in
relatively stable condition today.
Discharge Plan
-
Patient Disposition: Home with Home Care
Discharge Diagnosis/Procedures: Probable transient global amnesia. Orthostatic hypotension. Cognitive dysfunction.
Diet: Low Cholesterol
Activity: As tolerated
Blood Work: Please PCP to order CBC, BMP within 1 week
Referrals:
Nikolai Torres MD [Active, Neurology] - in two to four weeks
Miguel Edwards DO [Family Provider, Family Practice] - in less than 1 week
Prescriptions:
New
midodrine 5 mg tablet
5 mg PO TID Qty: 90 0RF
Rx Instructions:
Hold if SBP > 180 mm hg
Continued
multivitamin Tablet
1 tab PO DAILY
cyanocobalamin (vitamin B-12) [Vitamin B-12] 1,000 mcg Tablet
1,000 mcg PO DAILY
aspirin 81 mg Tablet
81 mg PO DAILY
metformin 500 mg Tablet Extended Release 24 Hr
500 mg PO QPM
Rx Instructions:
with meals
cholecalciferol (vitamin D3) [Vitamin D3] 25 mcg (1,000 unit) Capsule
25 mcg PO DAILY
B-complex with vitamin C Capsule
1 cap PO DAILY
omeprazole 10 mg Capsule,Delayed Release(Dr/Ec)
10 mg PO DAILY
docusate sodium [Colace] 100 mg Capsule
100 mg PO DAILY
ezetimibe 10 mg Tablet
10 mg PO DAILY
Discontinued
midodrine 2.5 mg Tablet
2.5 mg PO TID
Discharge Orders:
Discharge Patient (As Directed); Ordered 07/13/25
Ordered By: John Lucero
Discharge Date and Time
Discharge Date/Time: 07/13/25 13:51
Print Language: JAPANESE
--- NOTE | 2025-07-13 13:59 | CM ---
Received consult, attempted to meet with pt, pt was already discharged. Per RN, pt and his did not want to wait to speak with me and declined VN. I left a voicemail on pt's cell phone to confirm, awaiting call back.
[2025-07-13 15:31] LABS: C-Reactive Protein < 5.00 mg/L (0.0-10.00)
[2025-07-13 16:37] LABS: Folate 16.6 ng/ml (2.76-20); Vitamin B12 596 pg/ml (239-931)
== END 2025-07-13 13:51 | disposition home or self-care (01) | DRG 72 ==
LOC: 1 ACUTE 03:44
PROVIDERS: ADMITTING PHYSICIAN Hospitalist; ATTENDING PHYSICIAN Hospitalist; EMERGENCY PHYSICIAN Student in an Organized Health Care Education/Training Program; FAMILY PHYSICIAN Student in an Organized Health Care Education/Training Program; OTHER PHYSICIAN Psychiatry & Neurology Neurology
DX: G45.4 Transient global amnesia (principal); Z79.82 Long term (current) use of aspirin; I48.0 Paroxysmal atrial fibrillation; I95.1 Orthostatic hypotension; E11.9 Type 2 diabetes mellitus without complications; Z82.0 Family history of epilepsy and other diseases of the nervous system
CPT/HCPCS: 0042T; 70450; 70496; 70498; 70551; 80048; 80053; 80061; 81003; 82607; 82746; 82962; 83036; 84439; 84443; 84484; 85025; 85027; 85610; 85652; 85730; 86140; 92610; 93005; 93308; 93321; 93325; 97163; 97167; 99291; Q9967